=== PATIENT | male | born 1975 | race African-American/Black ===

== ENCOUNTER 2016-06-03 02:02 | Emergency (ER) | payer SELFPAY ==
[2016-06-03 02:12] VITALS: BP 131/87
[2016-06-03] MEDS ORDERED: Lidocaine 1% with EPINEPHrine 1:100,000 20 ML MDV INJECT ONE (02:30)
--- NOTE | 2016-06-03 02:52 | EDM.PDOC ---
ED HPI Skin/Rash - General Chief Complaint: Laceration Stated Complaint: MEDICAL CLEARENCE Time Seen by Provider: 06/03/16 02:13 Source: Reports: Patient, Police History Limitations: Reports: Intoxication - History of Present Illness INITIAL COMMENTS - FREE TEXT/NARRATIVE: The patient was brought in by [employer] [employer] police for a laceration to this head. The patient says he fell in the shower but he is being arrested for assaulting his cousin. He has a 2cm laceration to the right lateral eyebrow. He also has a smaller superficial laceration to the right cheek. He denies any other injuries. He does admit to drinking tonight. He says his tetanus is up to date. Timing: Reports: still present Location, Skin: Reports: face Quality: Reports: Sharp Severity: mild Place of Occurrence: home Associated Symptoms: Reports: no other symptoms - Related Data Allergies Allergy/AdvReac Type Severity Reaction Status Date / Time No Known Allergies Allergy Verified 06/03/16 02:09 Past Medical History Psychiatric History: Reports: Anxiety, Depression - Past Surgical History Dermatological Surgical History: Reports: Skin graft Social & Family History - Tobacco Use Smoking Status *Q: Former Smoker Used Tobacco, but Quit: Yes Month Tobacco Last Used: may 2012 - Caffeine Use Caffeine Use: Reports: Coffee, Energy drinks, Soda, Tea - Recreational Drug Use Recreational Drug Use: No ED ROS GENERAL - Review of Systems Review Of Systems: See Below Constitutional: Reports: no symptoms HEENT: Reports: Other (laceration to the right lateral eyebrow and right cheek) Respiratory: Reports: No Symptoms Cardiovascular: Reports: No symptoms Endocrine: Reports: no symptoms GI/Abdominal: Reports: No symptoms : Reports: no symptoms Musculoskeletal: Reports: no symptoms Skin: Reports: no symptoms ED EXAM, SKIN/RASH Exam: See Below Exam Limited By: Intoxication General Appearance: alert, no apparent distress Ears: normal external exam Nose: normal inspection Head: other (2cm laceration to the right lateral eybrow. 1.5cm superfical laceration to the right cheek.) Neck: normal inspection Respiratory/Chest: no respiratory distress, lungs clear, normal breath sounds Cardiovascular: regular rate, rhythm, no edema, no murmur GI/Abdominal: soft, non tender, no organomegaly, no mass Back Exam: normal inspection Extremities: normal inspection ED SKIN PROCEDURES - Laceration/Wound Repair Right Face Lac/wound length in cm: 2 Appearance: subcutaneous, irregular Anesthetic type: local Local anesthesia - Lidocaine (Xylocaine): 1% with epi Skin prep: saline Exploration/Debridement/Repair: wound explored, in a bloodless field, explored to base Closed with: sutures Suture size: 4-0 # of sutures: 3 Suture type: nylon, interrupted, simple Tetanus status addressed: Yes Complications: No Course - Vital Signs Last Recorded V/S: Last Vital Signs Temp 98.1 F 06/03/16 02:09 Pulse 89 06/03/16 02:09 Resp 16 06/03/16 02:09 BP 131/87 06/03/16 02:09 Pulse Ox 97 06/03/16 02:09 - Orders/Labs/Meds Meds: Medications Discontinued Medications Generic Name Dose Route Start Last Admin Trade Name Yannick PRN Reason Stop Dose Admin Lidocaine/Epinephrine 20 ml 06/03/16 02:30 Xylocaine 1% With Epinephrine 1:100,000 INJECT 06/03/16 02:31 ONETIME ONE - Re-Assessments/Exams Free Text/Narrative Re-Assessment/Exam: 06/03/16 02:52 I sutured the laceration to the eyebrow. The laceration on his cheek does not require sutures. Departure - Departure Time of Disposition: 02:55 Disposition: Home, Self-Care 01 Condition: good Clinical Impression: Superficial laceration of face Laceration of right eyebrow Qualifiers: Encounter type: initial encounter Qualified Code(s): S01.111A - Laceration without foreign body of right eyelid and periocular area, initial encounter Alcohol intoxication Qualifiers: Complication of substance-induced condition: uncomplicated Qualified Code(s): F10.120 - Alcohol abuse with intoxication, uncomplicated Forms: ED Department Discharge Additional Instructions: A medical screening exam was done and you are medically cleared to go to the [facility]. Wash your wounds 2 times per day and apply antibiotic ointment after. The sutures can be removed in 1 week. Look for any sine of infection such as redness, swelling, drainage or pain.
== END 2016-06-03 03:00 | disposition home or self-care (01) ==
LOC: JD.ED 02:02
DX: S01.111A Laceration without foreign body of right eyelid and periocular area, initial encounter (principal); F41.9 Anxiety disorder, unspecified; F32.9 Major depressive disorder, single episode, unspecified; F10.120 Alcohol abuse with intoxication, uncomplicated; Z87.891 Personal history of nicotine dependence; W18.2XXA Fall in (into) shower or empty bathtub, initial encounter
CPT/HCPCS: 12011; 99282-25; 99283-25